=== PATIENT | female | born 1980 | race Caucasian/White ===

== ENCOUNTER 2022-06-11 18:45 | Emergency (ER) | payer BC, OTHER ==
[~2022-06-11] VITALS: Ht 160 cm; Wt 59.9 kg
[2022-06-11 18:50] VITALS: BP 129/72
== END 2022-06-11 19:07 | disposition home or self-care (01) ==
LOC: ER 18:50
DX: T58.91XA Toxic effect of carbon monoxide from unspecified source, accidental (unintentional), initial encounter (principal); Z88.0 Allergy status to penicillin